=== PATIENT | female | born 1970 | race Caucasian/White ===

== ENCOUNTER 2018-05-06 17:36 | Emergency (ER) | payer BC, OTHER ==
--- NOTE | 2018-05-06 18:25 | ED ---
Chest Pain HPI - General Chief Complaint: Chest Pain Stated Complaint: Abnormal Labs Time Seen by Provider: 05/06/18 18:24 Source: patient Mode of arrival: ambulatory Limitations: no limitations - History of Present Illness Initial Comments: Diana is a 47-year-old female who presents to the emergency department after outpatient labs revealed an elevated troponin. Patient reports that on Sunday she was attending a concert at [facility]. She reports that she was walking the stairs and when she got to the top of the stairs she felt very short of breath, she began coughing and felt like she was given a pass out. She reports at that time she had some chest pressure, sharp pain and felt as though she could not catch her breath. Patient reports that she was scheduled to see her primary care physician today and discuss these symptoms with her primary care physician who ordered an emergent outpatient echo as well as labs. Labs resulted with an elevated troponin she was advised to come to the emergency department. She has no personal cardiac history though she does report that she had an aunt who had a stroke in her 40s and subsequently had a fatal AL. In addition she had 2 cousins who are twins who in their 40s from cardiac complications she is uncertain what those were. She has no personal history of PE or DVT. She has a history of a superficial venous thrombosis in the past but no deep vein thrombosis. She has no known family history of clotting disorder. She did make a trip to [place] earlier this month, however this was a 4 hour plane flight. Patient denies any swelling of one extremity or the other. She denies any immobilization or known cancers. - Related Data Home Medications Medication Instructions Recorded Confirmed Ibuprofen [Advil] 600 mg PO Q6HR PRN 05/06/18 05/06/18 Latanoprost/Pf [Latanoprost 0.005% 1 drop BOTH EYES HS 05/06/18 05/06/18 Eye Drop] Lisinopril [Zestril] 10 mg PO DAILY 05/06/18 05/06/18 Meloxicam [Mobic] 15 mg PO DAILY 05/06/18 05/06/18 Multivitamins, Thera [Multivitamin 1 tab PO DAILY 05/06/18 05/06/18 (formulary)] Allergies Allergy/AdvReac Type Severity Reaction Status Date / Time No Known Allergies Allergy Verified 05/06/18 17:45 Review of Systems ROS Statement: Those systems with pertinent positive or pertinent negative responses have been documented in the HPI. ROS Other: All systems not noted in ROS Statement are negative. EKG Findings - EKG Comments: EKG Findings:: EKG obtained at 1822, rate is 96, rhythm is sinus, there is normal axis, normal intervals, DE 142, QRS 92, QTc 472, there are no acute ST elevations or depressions noted. There is no evidence of acute ischemia or infarction. No evidence of acute right heart strain. Past Medical History Past Medical History: Hypertension Additional Past Medical History / Comment(s): glaucoma History of Any Multi-Drug Resistant Organisms: None Reported Past Surgical History: Section Additional Past Surgical History / Comment(s): gastric bypass Past Psychological History: No Psychological Hx Reported Smoking Status: Never smoker Past Alcohol Use History: None Reported Past Drug Use History: None Reported General Exam Limitations: no limitations Course Vital Signs 05/06/18 05/06/18 05/06/18 17:42 18:39 19:30 Temperature 98.7 F Pulse Rate 122 H 98 Pulse Rate [ 96 Trench Pipe Layer Helper ] Respiratory 20 20 18 Rate Blood Pressure 139/89 168/78 O2 Sat by Pulse 97 98 Oximetry 05/06/18 05/06/18 05/06/18 20:19 20:51 21:14 Temperature 98.7 F 98.6 F Pulse Rate 103 H 98 99 Pulse Rate [ Trench Pipe Layer Helper ] Respiratory 20 18 16 Rate Blood Pressure 165/97 156/90 150/80 O2 Sat by Pulse 100 98 98 Oximetry Chest Pain MDM - Differential Diagnosis PE - [facility] Patient was seen and evaluated, history is obtained from the patient. History is very concerning for possible pulmonary embolism. Labs and imaging were ordered. EKG with a rate of 96, no tachycardia noted Labs reviewed, troponin is elevated at 0.2, d-dimer is significantly elevated at this time I have a very high suspicion for possible pulmonary embolism and I ordered high-dose heparin for treatment. PE study is pending. I reviewed the computed tomography scan which is concerning for bilateral pulmonary embolism, this was discussed with the on-call radiologist Dr. Smith who agrees that there is bilateral pulmonary embolism and each lung field. No sign of right heart strain on CT. I do feel this patient is a good candidate for intervention, the patient is hemodynamically stable with a bilateral pulmonary embolism. I discussed this with the patient and she is agreeable to possible transfer to a facility that is capable of doing ECOS. Patient care was discussed with Dr. Burt at [facility] who accepts the transfer to their facility for evaluation of possible ECOS. Disposition Clinical Impression: Pulmonary embolism, Elevated troponin Disposition: OTHER INSTITUTION NOT DEFINED Condition: Serious Instructions: Chest Pain (ED) Is patient prescribed a controlled substance at d/c from ED?: No Referrals: Santy Turcios MD [Primary Care Provider] - 1-2 days Time of Disposition: 20:45 - Out of Hospital Transfer - Req. Specs Out of Hospital Transfer - Requested Specifics: Other Emergency Center ([facility])
[2018-05-06 18:47] LABS: Anisocytosis Slight; Basophils % (A) 0 %; Eosinophils # (A) 0.1 k/uL (0-0.7); Eosinophils % (A) 1 %; HCT 42.9 % (34.0-46.0); HGB 12.4 gm/dL (11.4-16.0); Hypochromasia Marked; Lymphocytes # (A) 1.8 k/uL (1.0-4.8); Lymphocytes % (A) 19 %; MCH 20.1 pg (25.0-35.0); MCHC 28.9 g/dL (31.0-37.0); MCV 69.3 fL (80.0-100.0); Mean Platelet Volume 6.6; Microcytosis Marked; Monocytes # (A) 0.6 k/uL (0-1.0); Monocytes % (A) 7 %; Neutrophils # (A) 6.9 k/uL (1.3-7.7); Neutrophils % (A) 73 %; Platelet Count 210 k/uL (150-450); RBC 6.19 m/uL (3.80-5.40); RDW 17.1 % (11.5-15.5); WBC 9.4 k/uL (3.8-10.6)
--- NOTE | 2018-05-06 18:53 | XR ---
EXAMINATION TYPE: XR chest 2V DATE OF EXAM: 05/06/2018 COMPARISON: NONE HISTORY: Chest pain TECHNIQUE: Frontal and lateral views of the chest are obtained. FINDINGS: Heart and mediastinum are normal. Lungs are clear. Diaphragm is normal. Bony thorax appear s normal. IMPRESSION: Normal chest
[2018-05-06 19:03] LABS: ALT 29 U/L (9-52); AST 29 U/L (14-36); Albumin 4.1 g/dL (3.5-5.0); Alkaline Phosphatase 87 U/L (38-126); Anion Gap 10 mmol/L; Blood Urea Nitrogen 16 mg/dL (7-17); Calcium 9.8 mg/dL (8.4-10.2); Carbon Dioxide 24 mmol/L (22-30); Chloride 107 mmol/L (98-107); Glucose 110 mg/dL (74-99); Magnesium 1.9 mg/dL (1.6-2.3); Potassium 4.2 mmol/L (3.5-5.1); Sodium 141 mmol/L (137-145); Total Bilirubin 0.4 mg/dL (0.2-1.3); Total Protein 7.5 g/dL (6.3-8.2)
[2018-05-06 19:15] LABS: Creatine Kinase MB 1.5 ng/mL (0.0-2.4)
[2018-05-06 19:19] LABS: D-Dimer 10.04 mg/L FEU (<0.60)
[2018-05-06 19:23] LABS: Troponin I 0.201 ng/mL (0.000-0.034)
[2018-05-06 19:25] LABS: Partial Thromboplastin Time 21.2 sec (22.0-30.0)
[2018-05-06] MEDS ORDERED: HEPARIN SODIUM,PORCINE 10,000 UNIT/ML 1 ML VIAL IV ONE (19:30)
[2018-05-06] MEDS ORDERED: HEPARIN SODIUM,PORCINE 5,000 UNIT/ML 1 ML VIAL IV PRN (19:30)
[2018-05-06] MEDS ORDERED: HEPARIN SOD,PORK IN 0.45% NACL 25,000 UNIT in 0.45% NACL 1 500ML.BAG IV SCH (19:30)
--- NOTE | 2018-05-06 20:27 | CT ---
EXAMINATION TYPE: CT chest angio for PE DATE OF EXAM: 05/06/2018 COMPARISON: None HISTORY: Shortness of breath, mid chest and back pain, elevated d-dimer. CT DLP: 497 mGycm Automated exposure control for dose reduction was used. CONTRAST: CT Chest for pulmonary embolism performed with with IV Contrast, patient injected with 81 mL of Isovu e 370. FINDINGS: There are 3-D post processed images. Lungs are clear of infiltrate. There is no pleural effusion. There is small hiatal hernia. There are surgical clips probably from bariatric surgery. Heart size is normal. There is no pericardial effusion. There are multiple filling defects in the pul monary arteries in both lower lobes. There is also involvement of the upper lobe pulmonary arteries. There is no mediastinal adenopathy. Thoracic aorta appears normal. There is no aneurysm or dissection . There is no mediastinal adenopathy. The bony thorax is intact. There is no reflux of contrast into the jugular veins. Interventricular septum appears normal. Right heart is not enlarged. IMPRESSION: Extensive bilateral upper and lower lobe pulmonary emboli. This exam was discussed with ER physician at 8:20 PM. No evidence of right heart strain.
[2018-05-06 21:18] VITALS: BP 150/80; PULSE 99; RESP 16; TEMP 98.6
== END 2018-05-06 21:14 | disposition short-term general hospital (02) ==
LOC: EC 17:36
DX: I26.99 Other pulmonary embolism without acute cor pulmonale (principal); R79.89 Other specified abnormal findings of blood chemistry; R79.1 Abnormal coagulation profile; H40.9 Unspecified glaucoma; I10 Essential (primary) hypertension; Z79.1 Long term (current) use of non-steroidal anti-inflammatories (NSAID); Z79.899 Other long term (current) drug therapy; Z82.49 Family history of ischemic heart disease and other diseases of the circulatory system
CPT/HCPCS: 99285; 96365; 96376; 36415; 93005; 85379; 80053; 82550; 82553; 83735; 84484; 85025; 85610; 85730; 71046; 71275; J1644 ×2; Q9967

== ENCOUNTER 2018-06-24 14:25 | Emergency (ER) | payer OTHER ==
[2018-06-24] MEDS ORDERED: SODIUM CHLORIDE 0.9% 500 ML 500 ML IV STA (15:20)
--- NOTE | 2018-06-24 15:23 | ED ---
SOB HPI - General Source: patient, RN notes reviewed Mode of arrival: ambulatory Limitations: no limitations <Marco Mata - Last Filed: 06/24/18 16:58> <Fermin Campbell - Last Filed: 06/24/18 19:06> - General Chief Complaint: Shortness of Breath Stated Complaint: Sob Time Seen by Provider: 06/24/18 15:13 - History of Present Illness Initial Comments: This is a 48-year-old female presents emergency Department chief complaint of shortness of breath. Patient states she's had increased shortness breath last 3 days. Patient states approximately 6 weeks ago she was transferred from here to [facility] [place] for saddle PE and which she states that she had a procedure to break the clot. She states that they went to her groin and gave her which she believes was TPA for 8 hours. Patient states that she was discharged on Eliquis. Patient states that she has pressure in her chest and just more short of breath than usual. Patient denies any URI symptoms. Patient denies any headache this time but she has slight dizziness. (Marco Mata) - Related Data Home Medications Medication Instructions Recorded Confirmed Lisinopril [Zestril] 10 mg PO DAILY 05/06/18 06/24/18 Acetaminophen Tab [Tylenol Tab] 1,000 mg PO Q6HR PRN 06/24/18 06/24/18 Apixaban [Eliquis] 5 mg PO BID 06/24/18 06/24/18 Ferrous Sulfate [Feosol] 325 mg PO DAILY 06/24/18 06/24/18 Multivitamins, Thera [Multivitamin 1 tab PO DAILY 06/24/18 06/24/18 (formulary)] Allergies Allergy/AdvReac Type Severity Reaction Status Date / Time No Known Allergies Allergy Verified 06/24/18 15:23 Review of Systems ROS Other: All systems not noted in ROS Statement are negative. <Marco Mata - Last Filed: 06/24/18 16:58> ROS Other: All systems not noted in ROS Statement are negative. <Fermin Campbell - Last Filed: 06/24/18 19:06> ROS Statement: Those systems with pertinent positive or pertinent negative responses have been documented in the HPI. Past Medical History Past Medical History: Deep Vein Thrombosis (DVT), Hypertension, Pulmonary Embolus (PE) Additional Past Medical History / Comment(s): glaucoma History of Any Multi-Drug Resistant Organisms: None Reported Past Surgical History: Section Additional Past Surgical History / Comment(s): gastric bypass Past Psychological History: No Psychological Hx Reported Smoking Status: Never smoker Past Alcohol Use History: None Reported Past Drug Use History: None Reported <Marco Mata - Last Filed: 06/24/18 16:58> General Exam Limitations: no limitations General appearance: alert, in no apparent distress Head exam: Present: atraumatic, normocephalic, normal inspection Eye exam: Present: normal appearance, PERRL, EOMI. Absent: scleral icterus, conjunctival injection, periorbital swelling ENT exam: Present: normal exam, normal oropharynx, mucous membranes moist, TM's normal bilaterally, normal external ear exam Neck exam: Present: normal inspection, full ROM. Absent: tenderness, meningismus, lymphadenopathy Respiratory exam: Present: normal lung sounds bilaterally. Absent: respiratory distress, wheezes, rales, rhonchi, stridor Cardiovascular Exam: Present: normal rhythm, tachycardia, normal heart sounds. Absent: systolic murmur, diastolic murmur, rubs, gallop, clicks Neurological exam: Present: alert, oriented X3, CN II-XII intact Skin exam: Present: warm, dry, intact, normal color. Absent: rash <Marco Mata - Last Filed: 06/24/18 16:58> Vital Signs 06/24/18 06/24/18 14:56 16:23 Temperature 98.2 F Pulse Rate 106 H Respiratory 20 18 Rate Blood Pressure 122/81 O2 Sat by Pulse 100 Oximetry Medical Decision Making - Lab Data Result diagrams: 06/24/18 16:15 06/24/18 16:15 <Marco Mata - Last Filed: 06/24/18 16:58> - Lab Data Result diagrams: 06/24/18 16:15 06/24/18 16:15 <Fermin Campbell - Last Filed: 06/24/18 19:06> - Medical Decision Making Patient reexamined at this time shows no signs of distress. Patient was advised coming here to the emergency room to rule out a PE. Patient states that she was diagnosed with a pulmonary embolism 6 weeks ago. She states she is currently on a blood thinner of Eliquis. Patient's labs were reviewed. Her CT of the chest CT shows 1. No acute process. 2. Interval resolution of pulmonary emboli seen on prior CT on 05/06/2018. New 3 cm with soft tissue density posterior within the left lower lobe noted. Advised a [address] follow -up as read by radiologist Dr. Smith. Results discussed with the patient. Case discussed with attending physician Dr. Johnson. At this time patient is resting comfortably. She will be discharged to follow-up with her family physician. (Fermin Campbell) - Lab Data Lab Results 06/24/18 06/24/18 06/24/18 Range/Units 16:15 16:15 16:15 WBC 7.1 (3.8-10.6) k/uL RBC 6.06 H (3.80-5.40) m/uL Hgb 12.9 (11.4-16.0) gm/dL Hct 42.0 (34.0-46.0) % MCV 69.3 L (80.0-100.0) fL MCH 21.3 L (25.0-35.0) pg MCHC 30.7 L (31.0-37.0) g/dL RDW 17.0 H (11.5-15.5) % Plt Count 224 (150-450) k/uL Neutrophils % 68 % Lymphocytes % 22 % Monocytes % 7 % Eosinophils % 1 % Basophils % 0 % Neutrophils # 4.9 (1.3-7.7) k/uL Lymphocytes # 1.6 (1.0-4.8) k/uL Monocytes # 0.5 (0-1.0) k/uL Eosinophils # 0.1 (0-0.7) k/uL Basophils # 0.0 (0-0.2) k/uL Hypochromasia Moderate Anisocytosis Slight Microcytosis Marked PT (9.0-12.0) sec INR (<1.2) APTT (22.0-30.0) sec Sodium 139 (137-145) mmol/L Potassium 4.6 (3.5-5.1) mmol/L Chloride 105 (98-107) mmol/L Carbon Dioxide 27 (22-30) mmol/L Anion Gap 7 mmol/L BUN 16 (7-17) mg/dL Creatinine 0.79 (0.52-1.04) mg/dL Est GFR (CKD-EPI)AfAm >90 (>60 ml/min/1.73 sqM) Est GFR (CKD-EPI)NonAf >90 (>60 ml/min/1.73 sqM) Glucose 100 H (74-99) mg/dL Calcium 9.7 (8.4-10.2) mg/dL Magnesium 1.9 (1.6-2.3) mg/dL Total Bilirubin 0.5 (0.2-1.3) mg/dL AST 32 (14-36) U/L ALT 33 (9-52) U/L Alkaline Phosphatase 76 (38-126) U/L Total Creatine Kinase 73 (30-135) U/L CK-MB (CK-2) 1.0 (0.0-2.4) ng/mL CK-MB (CK-2) Rel Index 1.4 Troponin I <0.012 (0.000-0.034) ng/mL NT-Pro-B Natriuret Pep pg/mL Total Protein 7.6 (6.3-8.2) g/dL Albumin 4.0 (3.5-5.0) g/dL 06/24/18 06/24/18 Range/Units 16:15 16:15 WBC (3.8-10.6) k/uL RBC (3.80-5.40) m/uL Hgb (11.4-16.0) gm/dL Hct (34.0-46.0) % MCV (80.0-100.0) fL MCH (25.0-35.0) pg MCHC (31.0-37.0) g/dL RDW (11.5-15.5) % Plt Count (150-450) k/uL Neutrophils % % Lymphocytes % % Monocytes % % Eosinophils % % Basophils % % Neutrophils # (1.3-7.7) k/uL Lymphocytes # (1.0-4.8) k/uL Monocytes # (0-1.0) k/uL Eosinophils # (0-0.7) k/uL Basophils # (0-0.2) k/uL Hypochromasia Anisocytosis Microcytosis PT 10.1 (9.0-12.0) sec INR 1.0 (<1.2) APTT 22.0 (22.0-30.0) sec Sodium (137-145) mmol/L Potassium (3.5-5.1) mmol/L Chloride (98-107) mmol/L Carbon Dioxide (22-30) mmol/L Anion Gap mmol/L BUN (7-17) mg/dL Creatinine (0.52-1.04) mg/dL Est GFR (CKD-EPI)AfAm (>60 ml/min/1.73 sqM) Est GFR (CKD-EPI)NonAf (>60 ml/min/1.73 sqM) Glucose (74-99) mg/dL Calcium (8.4-10.2) mg/dL Magnesium (1.6-2.3) mg/dL Total Bilirubin (0.2-1.3) mg/dL AST (14-36) U/L ALT (9-52) U/L Alkaline Phosphatase (38-126) U/L Total Creatine Kinase (30-135) U/L CK-MB (CK-2) (0.0-2.4) ng/mL CK-MB (CK-2) Rel Index Troponin I (0.000-0.034) ng/mL NT-Pro-B Natriuret Pep 94 pg/mL Total Protein (6.3-8.2) g/dL Albumin (3.5-5.0) g/dL - EKG Data EKG Comments: EKG performed at 15:40 normal sinus rhythm with a rate of 93 GA 162 QRS 78 QT/ QTC 350/435 (Marco Mata) Disposition <Marco Mata - Last Filed: 06/24/18 16:58> Is patient prescribed a controlled substance at d/c from ED?: No Time of Disposition: 19:06 <Fermin Campbell - Last Filed: 06/24/18 19:06> Clinical Impression: Mass of left lung Disposition: HOME SELF-CARE Condition: Good Additional Instructions: Please follow-up the family doctor over the next 2 days. Please return here to the emergency room for any symptoms increase worsen or for any other concerns. Referrals: Santy Turcios MD [Primary Care Provider] - 1-2 days
[2018-06-24 16:26] VITALS: RESP 18
[2018-06-24 16:27] LABS: Anisocytosis Slight; Basophils % (A) 0 %; Eosinophils # (A) 0.1 k/uL (0-0.7); Eosinophils % (A) 1 %; HGB 12.9 gm/dL (11.4-16.0); Hypochromasia Moderate; Lymphocytes # (A) 1.6 k/uL (1.0-4.8); Lymphocytes % (A) 22 %; MCH 21.3 pg (25.0-35.0); MCHC 30.7 g/dL (31.0-37.0); MCV 69.3 fL (80.0-100.0); Mean Platelet Volume 6.7; Microcytosis Marked; Monocytes # (A) 0.5 k/uL (0-1.0); Monocytes % (A) 7 %; Neutrophils # (A) 4.9 k/uL (1.3-7.7); Neutrophils % (A) 68 %; Platelet Count 224 k/uL (150-450); RBC 6.06 m/uL (3.80-5.40); WBC 7.1 k/uL (3.8-10.6)
[2018-06-24 16:35] LABS: ALT 33 U/L (9-52); AST 32 U/L (14-36); Alkaline Phosphatase 76 U/L (38-126); Anion Gap 7 mmol/L; Blood Urea Nitrogen 16 mg/dL (7-17); Calcium 9.7 mg/dL (8.4-10.2); Carbon Dioxide 27 mmol/L (22-30); Chloride 105 mmol/L (98-107); Glucose 100 mg/dL (74-99); Magnesium 1.9 mg/dL (1.6-2.3); Potassium 4.6 mmol/L (3.5-5.1); Sodium 139 mmol/L (137-145); Total Bilirubin 0.5 mg/dL (0.2-1.3); Total Protein 7.6 g/dL (6.3-8.2)
[2018-06-24 16:38] LABS: Creatine Kinase 73 U/L (30-135)
[2018-06-24 16:42] LABS: Prothrombin Time 10.1 sec (9.0-12.0)
[2018-06-24 16:53] LABS: Troponin I <0.012 ng/mL (0.000-0.034)
--- NOTE | 2018-06-24 18:01 | CT ---
EXAMINATION TYPE: CT chest angio for PE with contrast and with 3-D reconstruction renderings DATE OF EXAM: 06/24/2018 COMPARISON: 05/06/2018 CTA - which showed extensive pulmonary emboli wo right heart strain evidence. HISTORY: SOB for 5 days with history of PE CT DLP: 571.2 mGycm Automated exposure control for dose reduction was used. CONTRAST: CT Chest for pulmonary embolism performed with with IV Contrast, patient injected with 100 mL of Isovue 370. FINDINGS: LUNGS: The lungs are grossly clear, there is no acute process. The left lower lobe posteriorly is a 3 x 2 x 1.5 cm soft tissue density not seen on the prior CTA of 05/06/2018, likely rounded atelectasis versus infarct. There is no pleural effusion or pneumothorax seen. The tracheobronchial tree is pat ent. MEDIASTINUM: There is satisfactory enhancement of the pulmonary artery and its branches, there is no CT evidence for pulmonary embolism. Aorta is unremarkable. There are no greater than 1 cm hilar or m ediastinal lymph nodes. No cardiomegaly. No pericardial effusion is seen. OTHER: No additional significant abnormality is seen. IMPRESSION: 1. NO ACUTE PROCESS. 2. Interval resolution of the pulmonary emboli seen on the prior CTA of 05/06/2018. New 3 cm ovoid so ft tissue density posteriorly within the left lower lobe noted; would advise 3 month follow-up CT to prove resolution.
[2018-06-24 19:23] VITALS: BP 114/76; PULSE 82; TEMP 97.5
== END 2018-06-24 19:21 | disposition home or self-care (01) ==
LOC: EC 14:25
DX: R91.8 Other nonspecific abnormal finding of lung field (principal); I26.99 Other pulmonary embolism without acute cor pulmonale; R00.0 Tachycardia, unspecified; R06.02 Shortness of breath; R07.89 Other chest pain; R42 Dizziness and giddiness; I10 Essential (primary) hypertension; Z79.01 Long term (current) use of anticoagulants; Z79.899 Other long term (current) drug therapy; Z86.718 Personal history of other venous thrombosis and embolism
CPT/HCPCS: 36415; 93005; 83880; 80053; 82550; 82553; 83735; 84484; 85025; 85610; 85730; 71275; 99285; 96360; Q9967

== ENCOUNTER → 2018-12-03 | Outpatient (CLI) | payer OTHER ==
--- NOTE | 2018-12-05 09:59 | MM ---
Reason for exam: screening (asymptomatic). Last mammogram was performed 2 years and 4 months ago. History: Patient had first child at age 34. Family history of breast cancer in maternal grandmother at age 70. Physical Findings: A clinical breast exam by your physician is recommended on an annual basis and results should be correlated with mammographic findings. MG Screening Mammo w CAD Bilateral CC and MLO view(s) were taken. Prior study comparison: August 02, 2016, bilateral MG 3d screening mammo w/cad. August 13, 2012, CAD bilateral diagnostic mammogram. There are scattered fibroglandular densities. There is chronic nodularity bilaterally. No significant changes when compared with prior studies. ASSESSMENT: Negative, BI-RAD 1 RECOMMENDATION: Routine screening mammogram of both breasts in 1 year.
== END | disposition home or self-care (01) ==
LOC: RADMAMWWP 16:42
PROVIDERS: ATTEND Obstetrics & Gynecology
DX: Z12.31 Encounter for screening mammogram for malignant neoplasm of breast (principal)
CPT/HCPCS: 77067

== ENCOUNTER → 2019-01-07 | Outpatient (CLI) | payer OTHER ==
[2019-01-08 11:15] LABS: APTT 34 Sec(s) (<43); DRVVT 1:1 Mix 46 Sec(s) (<44); DRVVT Confirmation Negative (Negative); Dilute Russell Viper Venom 57 Sec(s) (<44)
[2019-01-10 11:35] LABS: Anti-Thrombin III Activity 69 % (79-109)
[2019-01-10 12:19] LABS: Protein C (Activity) 89 % (71-138)
== END | disposition home or self-care (01) ==
LOC: LABWHC1 11:34
PROVIDERS: ATTEND Family Medicine
DX: I26.09 Other pulmonary embolism with acute cor pulmonale (principal); D50.8 Other iron deficiency anemias
CPT/HCPCS: 36415; 85300; 85303; 85306; 85613; 85730

== ENCOUNTER → 2019-02-14 | Outpatient (CLI) | payer OTHER ==
--- NOTE | 2019-02-17 19:41 | ECHOF ---
Referral Reason:I50.9 Heart Failure MEASUREMENTS -------- HEIGHT: 174.0 cm WEIGHT: 131.5 kg BP: 143/73 IVSd: 1.0 cm (0.6 - 1.1) LVIDd: 4.1 cm (3.9 - 5.3) LVPWd: 1.1 cm (0.6 - 1.1) IVSs: 1.5 cm LVIDs: 2.7 cm LVPWs: 1.6 cm LA Diam: 3.3 cm (2.7 - 3.8) RVIDd: 3.1 cm (< 3.3) LAESV Index (A-L): 23.85 ml/m Ao Diam: 3.4 cm (2.0 - 3.7) AV Cusp: 2.1 cm (1.5 - 2.6) EPSS: 0.5 cm MV E Mick: 1.35 m/s MV DecT: 212 ms MV A Mick: 1.07 m/s MV E/A Ratio: 1.26 AV maxP.01 mmHg AV meanP.18 mmHg RAP: 5.00 mmHg RVSP: 26.04 mmHg MV EF SLOPE: 98.74 mm/s (70 - 150) MV EXCURSION: 17.31 mm (> 18.000) FINDINGS -------- Sinus rhythm. This was a technically adequate study. The left ventricular size is normal. There is borderline concentric left ventricular hypertrophy. Overall left ventricular systolic function is normal with, an EF between 60 - 65 %. The right ventricle is normal in size. Normal LA size by volume 22+/-6 ml/m2. The right atrium is normal in size. Interatrial and interventricular septum intact. The aortic valve is trileaflet and appears structurally normal. The mitral valve leaflets are mildly thickened. Mild tricuspid regurgitation present. Right ventricular systolic pressure is normal at < 35 mmHg. Trace/mild (physiologic) pulmonic regurgitation. Area of interests in LV The aortic root size is normal. Normal inferior vena cava with normal inspiratory collapse consistent with estimated right atrial pre ssure of 5 mmHg. IVC Not well visulized. There is no pericardial effusion. CONCLUSIONS -------- 1. Sinus rhythm. 2. This was a technically adequate study. 3. The left ventricular size is normal. 4. There is borderline concentric left ventricular hypertrophy. 5. Overall left ventricular systolic function is normal with, an EF between 60 - 65 %. 6. The right ventricle is normal in size. 7. Normal LA size by volume 22+/-6 ml/m2. 8. The right atrium is normal in size. 9. Interatrial and interventricular septum intact. 10. The aortic valve is trileaflet and appears structurally normal. 11. The mitral valve leaflets are mildly thickened. 12. Mild tricuspid regurgitation present. 13. Right ventricular systolic pressure is normal at < 35 mmHg. 14. Trace/mild (physiologic) pulmonic regurgitation. 15. Area of interests in LV 16. The aortic root size is normal. 17. Normal inferior vena cava with normal inspiratory collapse consistent with estimated right atrial pressure of 5 mmHg. 18. IVC Not well visulized. 19. There is no pericardial effusion. [employer] WORKER: Estrella Jin RDCS
== END | disposition home or self-care (01) ==
LOC: RADECHMAIN 15:31
PROVIDERS: ATTEND Family Medicine
DX: I07.1 Rheumatic tricuspid insufficiency (principal); I37.1 Nonrheumatic pulmonary valve insufficiency
CPT/HCPCS: 93306

== ENCOUNTER → 2019-05-13 | Outpatient (CLI) | payer OTHER ==
[2019-05-13 13:39] LABS: Anisocytosis Slight; Basophils % (A) 1 %; Eosinophils # (A) 0.1 k/uL (0-0.7); Eosinophils % (A) 2 %; HCT 40.8 % (34.0-46.0); HGB 12.1 gm/dL (11.4-16.0); Hypochromasia Marked; Lymphocytes # (A) 1.7 k/uL (1.0-4.8); Lymphocytes % (A) 27 %; MCH 21.3 pg (25.0-35.0); MCHC 29.6 g/dL (31.0-37.0); MCV 71.8 fL (80.0-100.0); Mean Platelet Volume 7.1; Microcytosis Moderate; Monocytes # (A) 0.4 k/uL (0-1.0); Monocytes % (A) 6 %; Neutrophils # (A) 3.8 k/uL (1.3-7.7); Neutrophils % (A) 62 %; Platelet Count 218 k/uL (150-450); RBC 5.68 m/uL (3.80-5.40); RDW 17.1 % (11.5-15.5); WBC 6.1 k/uL (3.8-10.6)
== END | disposition home or self-care (01) ==
LOC: LABWHC1 12:25
PROVIDERS: ATTEND Internal Medicine
DX: I26.09 Other pulmonary embolism with acute cor pulmonale (principal); D50.8 Other iron deficiency anemias
CPT/HCPCS: 36415; 82728; 85025; 85300

== ENCOUNTER → 2019-05-30 | Outpatient (CLI) | payer OTHER ==
--- NOTE | 2019-05-31 10:08 | US ---
EXAMINATION TYPE: US kidneys/renal and bladder DATE OF EXAM: 05/30/2019 COMPARISON: NONE CLINICAL HISTORY: N23 RENAL COLIC. bilateral flank pain EXAM MEASUREMENTS: Right Kidney: 11.8 x 5.1 x 5.5 cm Left Kidney: 12.5 x 4.8 x 5.5 cm Right Kidney: No hydronephrosis or masses seen Left Kidney: No hydronephrosis or masses seen Bladder: wnl Bilateral Jets seen: yes There is no evidence for hydronephrosis at this point in time. No nephrolithiasis is seen. No ahsan s are identified. The urinary bladder is anechoic. Bilateral ureteral jets are seen. IMPRESSION: No significant abnormality seen.
== END | disposition home or self-care (01) ==
LOC: RADUSWWP 16:08
PROVIDERS: ATTEND Family Medicine
DX: N23 Unspecified renal colic (principal)
CPT/HCPCS: 76770

== ENCOUNTER 2019-07-04 11:44 | Day surgery (SDC) | payer OTHER ==
[2019-07-02 15:44] VITALS: BMI 44.3
[~2019-07-04 11:44] MED LIST: LACTATED RINGERS 1,000 ML IV SCH; LIDOCAINE 1% 20 ML VIAL (10MG/ML) FOR IV START INTRADERMA PRN
[2019-07-04 12:27] VITALS: RESP 16; TEMP 97.8
[2019-07-04] MEDS ORDERED: PROPOFOL 10 MG/ML 20 ML VIAL IV ONE (12:32)
--- NOTE | 2019-07-04 12:54 | P.PCN ---
Date of Procedure: 07/04/19 Procedure(s) Performed: BRIEF HISTORY: Patient is a 49-year-old pleasant female scheduled for an elective colonoscopy as a part of evaluation of iron deficiency anemia. Recently diagnosed with pulmonary embolism and has been on a liquid which she stopped 2 days ago. Also has had prior history of gastric bypass surgery. PROCEDURE PERFORMED: Colonoscopy with biopsy. PREOPERATIVE DIAGNOSIS: Iron deficiency anemia. IV sedation per Anesthesia. PROCEDURE: After informed consent was obtained, the patient, was brought into the endoscopy unit. IV sedation was administered by Anesthesia under continuous monitoring. Digital rectal examination was normal. Initially the Olympus CF-160 flexible video colonoscope was then inserted in the rectum, gradually advanced into the cecum without any difficulty. Careful examination was performed as the scope was gradually being withdrawn. Ileocecal valve and the appendiceal orifice were visualized and appeared normal. Prep was excellent. Mucosa of the cecum, ascending colon appeared normal. In the hepatic flexure there was a 2-3 mm polyp that was removed by cold biopsy. The proximal transverse colon there was a 5 mm sessile polyp removed by cold biopsy. Rest of the, transverse colon, descending colon, sigmoid colon, and rectum appeared normal. Retroflexion was performed in the rectum and no lesions were seen. Scattered sigmoid diverticulosis seen. The patient tolerated the procedure well. IMPRESSION: 2-3 mm sessile hepatic flexure polyp status post removal by cold biopsy 5 mm sessile transverse colon polyp status post removal by cold biopsy Scattered sigmoidal diverticulosis RECOMMENDATIONS: Findings of this examination were discussed with the patient as well as a family. She was advised to follow with the biopsy results. If the biopsy shows an adenoma she can have a repeat coloscopy in 5 years.
[2019-07-04 13:09] VITALS: BP 147/79; PULSE 75
== END 2019-07-04 13:31 | disposition home or self-care (01) ==
LOC: ORWHC2ENDO 11:44
PROVIDERS: ATTEND Internal Medicine Gastroenterology
DX: D50.9 Iron deficiency anemia, unspecified (principal); D12.3 Benign neoplasm of transverse colon; K63.5 Polyp of colon; K57.30 Diverticulosis of large intestine without perforation or abscess without bleeding; I10 Essential (primary) hypertension; Z79.01 Long term (current) use of anticoagulants; Z79.899 Other long term (current) drug therapy; Z98.84 Bariatric surgery status; Z86.711 Personal history of pulmonary embolism; Z86.718 Personal history of other venous thrombosis and embolism
CPT/HCPCS: 88305; 45380; J2704

== ENCOUNTER → 2019-09-17 | Outpatient (CLI) | payer OTHER ==
[2019-09-17 17:22] LABS: Anisocytosis Slight; Basophils % (A) 0 %; Eosinophils # (A) 0.1 k/uL (0-0.7); Eosinophils % (A) 1 %; HCT 43.2 % (34.0-46.0); HGB 12.9 gm/dL (11.4-16.0); Hypochromasia Marked; Lymphocytes # (A) 2.1 k/uL (1.0-4.8); Lymphocytes % (A) 27 %; MCH 22.5 pg (25.0-35.0); MCHC 29.9 g/dL (31.0-37.0); MCV 75.2 fL (80.0-100.0); Mean Platelet Volume 8.3; Microcytosis Slight; Monocytes # (A) 0.4 k/uL (0-1.0); Monocytes % (A) 6 %; Neutrophils % (A) 64 %; Platelet Count 269 k/uL (150-450); RBC 5.75 m/uL (3.80-5.40); RDW 16.2 % (11.5-15.5); WBC 7.8 k/uL (3.8-10.6)
[2019-09-18 01:02] LABS: % Iron Saturation 6.1 (12.00-45.00); Ferritin 7.4 ng/mL (10.0-291.0)
== END | disposition home or self-care (01) ==
LOC: LABWHC1 16:45
PROVIDERS: ATTEND Internal Medicine
DX: D50.8 Other iron deficiency anemias (principal); I26.09 Other pulmonary embolism with acute cor pulmonale
CPT/HCPCS: 36415; 82607; 82728; 83540; 83550; 85025

== ENCOUNTER → 2019-09-17 | Outpatient (CLI) | payer OTHER ==
--- NOTE | 2019-09-18 07:14 | XR ---
EXAMINATION TYPE: XR chest 2V DATE OF EXAM: 09/17/2019 COMPARISON: 05/06/2018 HISTORY: Shortness of breath. TECHNIQUE: Frontal and lateral views of the chest are obtained. FINDINGS: There is no focal air space opacity, pleural effusion, or pneumothorax seen. Redemonstrat ion of eventration of the right hemidiaphragm. The cardiac silhouette size is within normal limits. The osseous structures are intact. Small hiatal hernia suspected. IMPRESSION: No acute cardiopulmonary process.
--- NOTE | 2019-09-18 08:21 | XR ---
EXAMINATION TYPE: XR thoracic spine complete DATE OF EXAM: 09/17/2019 CLINICAL HISTORY: Central back pain between the scapulas without known injury. TECHNIQUE: Frontal, lateral, and swimmer's view of thoracic spine are obtained. COMPARISON: None. FINDINGS: Thoracic spine show satisfactory alignment without evidence of acute fracture or dislocatio n. Vertebral body heights and disc space heights are preserved. Minimal degenerative change with sma ll anterior osteophytes at multiple levels. There are low lung volumes. IMPRESSION: No acute fracture or malalignment is seen in the thoracic spine. Minimal degenerative di sc disease of the thoracic spine.
--- NOTE | 2019-09-18 08:22 | XR ---
EXAMINATION TYPE: XR scapula bilateral DATE OF EXAM: 09/17/2019 COMPARISON: NONE HISTORY: Bilateral scapular pain with no known injury TECHNIQUE: 2 views of the bilateral scapula were obtained FINDINGS: The bilateral glenohumeral joints maintain alignment. Mild bilateral acromioclavicular arth ropathy is seen with small marginal osteophytes. There is no fracture of either scapula. The visualiz ed ribs appear intact. IMPRESSION: No fracture or malalignment of either scapula. Mild acromioclavicular arthropathy bilater ally.
== END | disposition home or self-care (01) ==
LOC: RADXRMAIN 16:55
PROVIDERS: ATTEND Internal Medicine
DX: I26.09 Other pulmonary embolism with acute cor pulmonale (principal); M51.34 Other intervertebral disc degeneration, thoracic region; M19.012 Primary osteoarthritis, left shoulder; M19.011 Primary osteoarthritis, right shoulder; D50.8 Other iron deficiency anemias
CPT/HCPCS: 71046; 72072

== ENCOUNTER → 2019-10-17 | Outpatient (CLI) | payer OTHER ==
--- NOTE | 2019-10-17 12:10 | CT ---
EXAMINATION TYPE: CT chest wo con DATE OF EXAM: 10/17/2019 COMPARISON: 06/24/2018 HISTORY: Solitary pulmonary nodule CT DLP: 527.90 mGycm. Automated Exposure Control for Dose Reduction was Utilized. TECHNIQUE: CT scan of the thorax is performed without IV contrast. FINDINGS: LUNGS: 5 mm pleural nodule right upper lobe posteriorly could be inflammatory. No consolidative pneum onia. No pleural effusion. Pleural-based density and axial image 23 also incidentally noted measuring and appears to represent pleural-based thickening extending into the fissure. Left lower lobe pulmon vito nodule previously discussed now appears linear in configuration and markedly reduced in size like ly inflammatory.. MEDIASTINUM: Lack of IV contrast is noted to limit evaluation for mediastinal and especially hilar ad enopathy. There are no definitive greater than 1 cm hilar or mediastinal lymph nodes. No cardiomega ly or pericardial effusion is seen. OTHER: Postsurgical change of the stomach. Small hiatal hernia. Hypertrophic change of the vertebral column. IMPRESSION: 1. There is near complete resolution of the left lower lobe posterior pulmonary nodule. No suspicious nodules identified. 2. There are 2 additional subpleural areas of thickening in the right upper lobe are likely inflammat ory.
== END | disposition home or self-care (01) ==
LOC: RADCTMAIN 11:43
PROVIDERS: ATTEND Family Medicine
DX: R91.1 Solitary pulmonary nodule (principal)
CPT/HCPCS: 71250

== ENCOUNTER → 2020-03-12 | Outpatient (CLI) | payer OTHER ==
[2020-03-12 07:57] LABS: Anisocytosis Slight; Basophils % (A) 1 %; Eosinophils # (A) 0.1 k/uL (0-0.7); Eosinophils % (A) 2 %; HCT 41.1 % (34.0-46.0); HGB 12.2 gm/dL (11.4-16.0); Hypochromasia Marked; Lymphocytes # (A) 1.8 k/uL (1.0-4.8); Lymphocytes % (A) 30 %; MCH 22.8 pg (25.0-35.0); MCHC 29.6 g/dL (31.0-37.0); MCV 76.9 fL (80.0-100.0); Mean Platelet Volume 7.2; Microcytosis Slight; Monocytes # (A) 0.5 k/uL (0-1.0); Monocytes % (A) 8 %; Neutrophils # (A) 3.6 k/uL (1.3-7.7); Neutrophils % (A) 58 %; Platelet Count 173 k/uL (150-450); RBC 5.34 m/uL (3.80-5.40); RDW 16.8 % (11.5-15.5); WBC 6.2 k/uL (3.8-10.6)
[2020-03-12 12:12] LABS: % Iron Saturation 11.6 (12.00-45.00)
[2020-03-12 12:33] LABS: Ferritin 9.7 ng/mL (10.0-291.0)
== END | disposition home or self-care (01) ==
LOC: LABWHC1 07:17
PROVIDERS: ATTEND Internal Medicine
DX: D50.8 Other iron deficiency anemias (principal); I26.09 Other pulmonary embolism with acute cor pulmonale
CPT/HCPCS: 36415; 82607; 82728; 83540; 83550; 85025

== ENCOUNTER → 2020-08-17 | Outpatient (CLI) | payer OTHER ==
--- NOTE | 2020-08-18 13:53 | MM ---
Reason for exam: screening (asymptomatic). Last mammogram was performed 1 year and 8 months ago. History: Patient is postmenopausal and had first child at age 34. Family history of breast cancer in maternal grandmother at age 70. Physical Findings: A clinical breast exam by your physician is recommended on an annual basis and results should be correlated with mammographic findings. MG 3D Screening Mammo W/Cad Bilateral CC and MLO view(s) were taken. Prior study comparison: December 03, 2018, bilateral MG screening mammo w CAD. August 02, 2016, bilateral MG 3d screening mammo w/cad. There are scattered fibroglandular densities. There is chronic nodularity bilaterally. No significant changes when compared with prior studies. ASSESSMENT: Benign, BI-RAD 2 RECOMMENDATION: Routine screening mammogram of both breasts in 1 year.
== END | disposition home or self-care (01) ==
LOC: RADMAMWWP 16:30
PROVIDERS: ATTEND Family Medicine
DX: Z12.31 Encounter for screening mammogram for malignant neoplasm of breast (principal)
CPT/HCPCS: 77063; 77067

== ENCOUNTER → 2020-10-11 | Outpatient (CLI) | payer OTHER ==
[2020-10-11 20:26] LABS: % Iron Saturation 8.33 (12.00-45.00)
[2020-10-11 20:41] LABS: Basophils # (A) 0.03 X 10*3/uL (0.00-0.10); Basophils % (A) 0.5 %; Eosinophils # (A) 0.06 X 10*3/uL (0.04-0.35); HCT 42.7 % (37.2-46.3); HGB 12.6 g/dL (12.0-15.0); Lymphocytes # (A) 1.74 X 10*3/uL (0.90-5.00); Lymphocytes % (A) 27.9 %; MCH 23.6 pg (27.0-32.0); MCHC 29.5 g/dL (32.0-37.0); MCV 80.1 fL (80.0-97.0); Mean Platelet Volume 10.9 fL (9.5-12.2); Monocytes # (A) 0.66 X 10*3/uL (0.20-1.00); Monocytes % (A) 10.6 %; Neutrophils # (A) 3.73 X 10*3/uL (1.80-7.70); Neutrophils % (A) 59.7 %; Platelet Count 239 X 10*3/uL (140-440); RBC 5.33 X 10*6/uL (4.10-5.20); WBC 6.24 X 10*3/uL (4.50-10.00)
[2020-10-11 21:09] LABS: Ferritin 6.6 ng/mL (10.0-291.0); Folate, Serum 14.4 ng/mL
== END | disposition home or self-care (01) ==
LOC: LABWHC1 11:18
PROVIDERS: ATTEND Internal Medicine
DX: I26.09 Other pulmonary embolism with acute cor pulmonale (principal); D50.8 Other iron deficiency anemias
CPT/HCPCS: 36415; 82607; 82728; 82746; 83540; 83550; 85025

== ENCOUNTER → 2020-11-25 | Outpatient (CLI) | payer OTHER ==
[2020-11-25 18:08] LABS: Basophils # (A) 0.03 X 10*3/uL (0.00-0.10); Basophils % (A) 0.6 %; Eosinophils # (A) 0.08 X 10*3/uL (0.04-0.35); Eosinophils % (A) 1.7 %; HGB 13.8 g/dL (12.0-15.0); Lymphocytes # (A) 1.14 X 10*3/uL (0.90-5.00); Lymphocytes % (A) 23.8 %; MCH 24.6 pg (27.0-32.0); MCHC 30.7 g/dL (32.0-37.0); MCV 80.4 fL (80.0-97.0); Mean Platelet Volume 10.7 fL (9.5-12.2); Monocytes % (A) 12.5 %; Neutrophils # (A) 2.94 X 10*3/uL (1.80-7.70); Neutrophils % (A) 61.2 %; Platelet Count 202 X 10*3/uL (140-440); RDW 18.1 % (11.5-14.5)
[2020-11-25 20:57] LABS: Hemoglobin A1C 5.1 % (4.0-6.0)
[2020-11-25 21:59] LABS: % Iron Saturation 35.64 (12.00-45.00); African American GFR (CKD) 117.9 (60.0-200.0); Albumin 4.2 g/dL (3.80-4.90); Anion Gap 7.2 mmol/L (4.00-12.00); BUN/Creat Ratio 24.29 Ratio (12.00-20.00); Calcium 9.4 mg/dL (8.7-10.3); Carbon Dioxide 25.8 mmol/L (21.6-31.8); Chol/HDL Ratio 4.45; Ferritin 320.2 ng/mL (10.0-291.0); Globulin 2.1 g/dL (1.6-3.3); Non-African American GFR(CKD) 101.7 (60.0-200.0); Potassium 4.6 mmol/L (3.5-5.5); Total Bilirubin 0.5 mg/dL (0.2-1.2); Total Protein 6.3 g/dL (6.2-8.2)
== END | disposition home or self-care (01) ==
LOC: LABWHC1 07:52
PROVIDERS: ATTEND Family Medicine
DX: Z00.00 Encounter for general adult medical examination without abnormal findings (principal); I26.09 Other pulmonary embolism with acute cor pulmonale; D50.8 Other iron deficiency anemias
CPT/HCPCS: 36415; 80053; 80061; 82728; 83036; 83540; 83550; 84443; 85025

== ENCOUNTER → 2021-05-13 | Outpatient (CLI) | payer OTHER ==
--- NOTE | 2021-05-13 09:20 | US ---
EXAMINATION TYPE: US abdomen complete DATE OF EXAM: 05/13/2021 COMPARISON: NONE CLINICAL HISTORY: R10.9 abdominal pain. morbidly obese patient who has history of gastric surgery has abd pain, and bloating EXAM MEASUREMENTS: Liver Length: 16.9 cm Gallbladder Wall: 0.2 cm CBD: 0.5 cm Spleen: 14.3 cm Right Kidney: 9.4 x 5.0 x 5.7 cm Left Kidney: 10.5 x 4.0 x 6.2 cm Pancreas: not seen Liver: limited views of left lobe, intercostal imaging of right due to habitus and gas, difficult to penetrate Gallbladder: mobile debris Evidence for sonographic Maurer's sign: no CBD: wnl Spleen: enlarged Right Kidney: wnl Left Kidney: wnl Upper IVC: wnl Abd Aorta: distal views only, limited aorta exam IMPRESSION: 1. Debris within the gallbladder. 2. Splenomegaly 3. Limitation of the examination due to bowel gas.
== END | disposition home or self-care (01) ==
LOC: RADUSWWP 07:35
PROVIDERS: ATTEND Family Medicine
DX: R16.1 Splenomegaly, not elsewhere classified (principal); Z98.84 Bariatric surgery status
CPT/HCPCS: 76700

== ENCOUNTER → 2021-07-27 | Outpatient (CLI) | payer OTHER ==
[~2021-07-27] MED LIST changes: +BAMLANIVIMAB (EUA) 700 MG, ETESEVIMAB (EUA) 1,400 MG in SODIUM CHLORIDE 0.9% 50 ML IVPB NR; -LACTATED RINGERS 1,000 ML IV SCH; -LIDOCAINE 1% 20 ML VIAL (10MG/ML) FOR IV START INTRADERMA PRN; +SODIUM CHLORIDE 0.9% 50 ML IVPB ONE; +SODIUM CHLORIDE 0.9% 500 ML 500 ML in EMPTY BAG 1 BAG IV PRN
[2021-07-27 14:01] VITALS: RESP 16
[2021-07-27 14:46] VITALS: TEMP 98.2
[2021-07-27 15:05] VITALS: BP 113/78; PULSE 63
== END ==
LOC: PROCWHC3 13:02
PROVIDERS: ATTEND Nurse Practitioner Adult Health
DX: U07.1 COVID-19 (principal); E66.9 Obesity, unspecified; Z68.41 Body mass index [BMI] 40.0-44.9, adult
CPT/HCPCS: 96360; J3490; M0245

== ENCOUNTER → 2022-09-21 | Outpatient (CLI) | payer OTHER ==
--- NOTE | 2022-09-23 16:22 | MM ---
Reason for Exam: Screening (asymptomatic). Last mammogram was performed 2 year(s) and 1 month(s) ago. Patient History: Menarche at age 13. First Full-Term at age 34. Late child-bearing (after 30). Postmenopausal. Maternal grandmother had breast cancer, age 70. Risk Values: Dominga 5 year model risk: 1.4%. NCI Lifetime model risk: 12.0%. Prior Study Comparison: 08/02/2016 Bilateral Screening Mammogram, [facility]. 12/03/2018 Bilateral Screening Mammogram, [facility]. 08/17/2020 Bilateral Screening Mammogram, [facility]. Tissue Density: There are scattered fibroglandular densities. Findings: Analyzed By CAD. Unchanged prominent intramammary lymph node upper outer quadrant right breast. There is no suspicious group of microcalcifications or new suspicious mass in either breast. Overall Assessment: Benign, BI-RAD 2 Management: Screening Mammogram of both breasts in 1 year. 1. Patient should continue monthly self breast exams. 2. A clinical breast exam by your physician is recommended on an annual basis. 3. This exam should not preclude additional follow-up of suspicious palpable abnormalities. Electronically signed and approved by: Kimani Seaman M.D. Radiologist
== END | disposition home or self-care (01) ==
LOC: RADMAMWWP 16:48
PROVIDERS: ATTEND Family Medicine
DX: Z12.31 Encounter for screening mammogram for malignant neoplasm of breast (principal); Z78.0 Asymptomatic menopausal state; Z80.3 Family history of malignant neoplasm of breast
CPT/HCPCS: 77063; 77067

== ENCOUNTER → 2022-09-25 | Outpatient (CLI) | payer OTHER ==
--- NOTE | 2022-09-26 08:45 | US ---
EXAMINATION TYPE: US transvaginal DATE OF EXAM: 09/25/2022 COMPARISON: NONE CLINICAL HISTORY: 52-year-old female R10.2 PELVIC AND PERINEAL PAIN. The pelvic pain for 6 months, hi gh risk for HPV, , TECHNIQUE: TV. Transvaginal sonographic images Date of LMP: 8 years ago FINDINGS: EXAM MEASUREMENTS: Uterus: 6.2 x 2.7 x 3.0 cm Endometrial Stripe: Not well delineated, estimated at 3.4 mm. Right Ovary: not seen Left Ovary: not seen 1. Uterus: Anteverted and otherwise wnl 2. Endometrium: not discernable 3. Right Ovary: not seen due to bowel gas 4. Left Ovary: not seen due to bowel gas 5. Bilateral Adnexa: wnl 6. Posterior cul-de-sac: wnl IMPRESSION: Unable to visualize either ovary. Endometrial stripe is very difficult to delineate, estimated at 3.4 mm.
== END | disposition home or self-care (01) ==
LOC: RADUSWWP 16:41
PROVIDERS: ATTEND Family Medicine
DX: R10.2 Pelvic and perineal pain (principal)
CPT/HCPCS: 76830

== ENCOUNTER → 2022-10-12 | Outpatient (CLI) | payer OTHER ==
--- NOTE | 2022-10-12 08:53 | CT ---
EXAMINATION TYPE: CT abdomen pelvis wo con DATE OF EXAM: 10/12/2022 HISTORY: Pelvic pain, abnormal PAP CT DLP: 1727.8 mGycm. Automated Exposure Control for Dose Reduction was Utilized. TECHNIQUE: CT scan of the abdomen and pelvis is performed without oral or IV contrast. COMPARISON: NONE FINDINGS: Within the limitations of a non-contrast study, the following observations are made. LUNG BASES: No significant abnormality is appreciated. LIVER/GB: Gallbladder surgically absent. PANCREAS: No significant abnormality is seen. SPLEEN: No significant abnormality is seen. ADRENALS: No significant abnormality is seen. KIDNEYS: No renal calculi or hydronephrosis is seen bilaterally. BOWEL: Surgical changes from Gloria fundoplication surgery at level of diaphragmatic hiatus. Focal di latation with some debris in the distal esophagus just above diaphragm. No suspicious small or large bowel dilatation is seen. GENITAL ORGANS: Anteverted normal-sized uterus. No free fluid in pelvic cul-de-sac. Right ovary has 1 .8 cm low dense lesion likely consistent with simple small thin-walled cyst. It can be better charact erized with pelvic ultrasound if desired. LYMPH NODES: No greater than 1cm abdominal or pelvic lymph nodes are appreciated. OSSEOUS STRUCTURES: [id number] axial joint space loss in both hips.. OTHER: No significant additional abnormality is seen. IMPRESSION: No suspicious mass or adenopathy seen on noncontrast CT to suggest metastatic neoplasm.
== END | disposition home or self-care (01) ==
LOC: RADCTMAIN 08:00
PROVIDERS: ATTEND Family Medicine
DX: R10.32 Left lower quadrant pain (principal)
CPT/HCPCS: 74176

== ENCOUNTER → 2023-11-20 | Outpatient (CLI) | payer OTHER ==
--- NOTE | 2023-11-21 14:27 | MM ---
Reason for Exam: Screening (asymptomatic). Last mammogram was performed 1 year(s) and 2 month(s) ago. Patient History: Menarche at age 13. First Full-Term at age 34. Late child-bearing (after 30). Postmenopausal. Maternal grandmother had breast cancer, age 70. Risk Values: Dominga 5 year model risk: 1.5%. NCI Lifetime model risk: 11.8%. Prior Study Comparison: 12/03/2018 Bilateral Screening Mammogram, [facility]. 08/17/2020 Bilateral Screening Mammogram, [facility]. 09/21/2022 Bilateral MG 3D screening mammo w/cad, [facility]. Tissue Density: The breasts are almost entirely fatty. Findings: Analyzed By CAD. There is no suspicious group of microcalcifications or new suspicious mass. Overall Assessment: Negative, BI-RAD 1 Management: Screening Mammogram of both breasts in [address] [facility] will attempt to contact patient to return for supplemental views and ultrasound if indicated. Patient should continue monthly self-breast exams. A clinical breast exam by your physician is recommended on an annual basis. This exam should not preclude additional follow-up of suspicious palpable abnormalities. Note on Dominga scores and lifetime risk: 1. A Dominga score greater than 3% is considered moderate risk. If this is the case, consider specialist referral to assess eligibility for a risk reducing agent. 2. If overall lifetime risk for the development of breast cancer is 20% or higher, the patient may qualify for future screening with alternating mammogram and breast MRI. Electronically signed and approved by: Wyatt Painting DO
== END | disposition home or self-care (01) ==
LOC: RADMAMWWP 16:18
PROVIDERS: ATTEND Family Medicine
DX: Z12.31 Encounter for screening mammogram for malignant neoplasm of breast (principal); Z80.3 Family history of malignant neoplasm of breast; Z78.0 Asymptomatic menopausal state
CPT/HCPCS: 77063; 77067

== ENCOUNTER → 2024-09-01 | Outpatient (CLI) | payer OTHER ==
--- NOTE | 2024-09-01 11:55 | XR ---
EXAMINATION TYPE: XR bone survey complete, 16 views DATE OF EXAM: 09/01/2024 COMPARISON: NONE CLINICAL INDICATION: Female, 54 years old with history of D47.2 MONOCLONAL GAMMOPATHY; FINDINGS: Chest: Evaluation right hemidiaphragm. Lungs appear clear though with some crowded vascular markings due to low lung volumes. Heart normal size. No discrete lytic lesion identified of the clavicles and ribs. Cervical spine: No prevertebral soft tissue swelling. Scattered mild endplate spondylosis as well as mild to moderate facet and uncovertebral joint arthropathy. No discrete lytic lesion. No malalignment . Humeri: No discrete lytic lesion or endosteal scalloping. Calvarium: No discrete lytic lesion. The mandible also appears clear. Scattered dental amalgam. Thoracic spine: Prominent anterior endplate spondylosis probably T10-T11. No vertebral compression co llapse or malalignment seen. Lumbar spine: Moderate anterior endplate spondylosis upper lumbar spine and thoracolumbar junction. S cattered mild degenerative disc disease. Vertebral body heights are preserved. Trace grade 1 retrolis thesis at a couple levels, probably L1-L2, L2-L3, L3-L4. Pelvis: SI joints appear symmetric and intact as do the hips and pubic symphysis. No punched out lesi on. Femurs: No punched-out lytic lesion or endosteal scalloping is seen. At least bicompartmental degener ative change in both knees with prominent marginal spurring. IMPRESSION: 1. No convincing lytic bone disease/radiographic evidence for myelomatous involvement. 2. Bicompartmental osteoarthrosis at the knees and some degenerative changes at the thoracolumbar valerie ction and upper lumbar spine. [facility], , 09/01/2024 11:52 AM
== END | disposition home or self-care (01) ==
LOC: RADXRMAIN 09:19
PROVIDERS: ATTEND Internal Medicine Hematology & Oncology
DX: D47.2 Monoclonal gammopathy (principal); I10 Essential (primary) hypertension; E78.5 Hyperlipidemia, unspecified; Z86.711 Personal history of pulmonary embolism
CPT/HCPCS: 77075

== ENCOUNTER → 2024-12-19 | Outpatient (CLI) | payer OTHER ==
--- NOTE | 2024-12-19 17:46 | MM ---
Reason for Exam: Screening (asymptomatic). Last mammogram was performed 1 year(s) and 1 month(s) ago. Patient History: Menarche at age 13. First Full-Term at age 34. Late child-bearing (after 30). Postmenopausal. Maternal grandmother had breast cancer, age 70. Risk Values: Dominga 5 year model risk: 1.5%. NCI Lifetime model risk: 11.6%. Prior Study Comparison: 08/17/2020 Bilateral Screening Mammogram, [facility]. 09/21/2022 Bilateral MG 3D screening mammo w/cad, [facility]. 11/20/2023 Bilateral MG 3D screening mammo w/cad, [facility]. Tissue Density: The breasts are almost entirely fatty. Findings: Analyzed By CAD. Benign intramammary lymph node redemonstrated upper outer quadrant right breast. There is no suspicious group of microcalcifications or new suspicious mass in either breast. Overall Assessment: Benign, BI-RAD 2 Management: Screening Mammogram of both breasts in 1 year. Patient should continue monthly self-breast exams. A clinical breast exam by your physician is recommended on an annual basis. This exam should not preclude additional follow-up of suspicious palpable abnormalities. Note on Dominga scores and lifetime risk: 1. A Dominga score greater than 3% is considered moderate risk. If this is the case, consider specialist referral to assess eligibility for a risk reducing agent. 2. If overall lifetime risk for the development of breast cancer is 20% or higher, the patient may qualify for future screening with alternating mammogram and breast MRI. [facility], , 12/19/2024 5:43 PM. Electronically signed and approved by: Kimani Seaman M.D. Radiologist
== END | disposition home or self-care (01) ==
LOC: RADMAMWWP 16:28
PROVIDERS: ATTEND Family Medicine
DX: Z12.31 Encounter for screening mammogram for malignant neoplasm of breast (principal); R92.313 Mammographic fatty tissue density, bilateral breasts; Z78.0 Asymptomatic menopausal state; Z80.3 Family history of malignant neoplasm of breast
CPT/HCPCS: 77063; 77067

== ENCOUNTER → 2024-12-26 | Outpatient (CLI) | payer OTHER ==
[2024-12-26 15:08] LABS: Basophils # (A) 0.03 X 10*3/uL (0.00-0.10); Basophils % (A) 0.6 %; Eosinophils # (A) 0.04 X 10*3/uL (0.04-0.35); Eosinophils % (A) 0.7 %; HGB 14.1 g/dL (12.0-15.0); Lymphocytes # (A) 1.42 X 10*3/uL (0.90-5.00); Lymphocytes % (A) 26.5 %; MCH 25.8 pg (27.0-32.0); MCHC 31.3 g/dL (32.0-37.0); MCV 82.3 FL (80.0-97.0); Mean Platelet Volume 10.2 FL (9.5-12.2); Monocytes % (A) 9.3 %; NRBC Per 100 WBC 0 X 10*3/uL (0.00-0.01); Neutrophils # (A) 3.36 X 10*3/uL (1.80-7.70); Neutrophils % (A) 62.7 %; Platelet Count 206 X 10*3/uL (140-440); RBC 5.47 X 10*6/uL (4.10-5.20); RDW 14.8 % (11.5-14.5); WBC 5.36 X 10*3/uL (4.50-10.00)
[2024-12-26 15:51] LABS: Chol/HDL Ratio 3.25 Ratio; LDL Cholesterol,Calculated 102.5 mg/dL (0.0-131.0); VLDL Calculation 11.66 mg/dL (5.00-40.00)
[2024-12-26 16:39] LABS: NT-Pro-B-Type Natriuretic Pept 136 pg/mL (0-125)
== END | disposition home or self-care (01) ==
LOC: LABWHC1 08:14
PROVIDERS: ATTEND Student in an Organized Health Care Education/Training Program
DX: Z13.6 Encounter for screening for cardiovascular disorders (principal); E11.9 Type 2 diabetes mellitus without complications; I50.9 Heart failure, unspecified; E78.5 Hyperlipidemia, unspecified; D72.9 Disorder of white blood cells, unspecified; E03.9 Hypothyroidism, unspecified; R79.89 Other specified abnormal findings of blood chemistry
CPT/HCPCS: 36415; 80061; 82103; 82104; 82785; 83036; 83880; 85025; 86001; 86003; 86606; 86609

== ENCOUNTER 2025-02-18 06:07 | Day surgery (SDC) | payer OTHER ==
[2025-02-17 08:29] VITALS: BMI 46.0
[2025-02-18] MEDS: IV FLUID CONTINUATION 500 ML IV ONE (06:46)
[2025-02-18] MEDS: SODIUM CHLORIDE 0.9% 500 ML 500 ML IV SCH (07:05)
[2025-02-18 07:10] LABS: Glucose,Whole Blood 99 mg/dL (70-110)
[2025-02-18 07:11] VITALS: TEMP 97
[2025-02-18] MEDS ORDERED: PROPOFOL 10 MG/ML 20 ML VIAL IV ONE (07:30)
[2025-02-18 08:16] VITALS: RESP 18
--- NOTE | 2025-02-18 08:29 | P.EPPROC ---
- EP Procedure Note Date of Procedure: 02/18/25 Electrophysiology Procedure Note: PROCEDURE NAME: Synchronized cardioversion. Consent: Risks and benefits discussed with patient and consent obtained. Anesthesia: provided by Anesthesia team using propofol The appropriate time-out procedure was performed including proper identification of the patient, physician, procedure, documentation, and there were no safety issues identified. The patient participated actively in this. After sedation was achieved, the patient was placed in the supine position and hands free patches were placed on his chest in the AP position. 1 shock was provided at, 200 Joules with successful resumption of normal sinus rhythm. This was confirmed on EKG. Repeat EKG confirms return to sinus rhythm. Complications: The patient tolerated the procedure well without complications.
[2025-02-18 09:23] VITALS: BP 91/62; PULSE 57
== END 2025-02-18 09:23 | disposition home or self-care (01) ==
LOC: OR 06:07
PROVIDERS: ATTEND Student in an Organized Health Care Education/Training Program
DX: I48.11 Longstanding persistent atrial fibrillation (principal); I42.9 Cardiomyopathy, unspecified; E66.01 Morbid (severe) obesity due to excess calories; G47.33 Obstructive sleep apnea (adult) (pediatric); Z68.42 Body mass index [BMI] 45.0-49.9, adult; Z86.711 Personal history of pulmonary embolism; Z88.8 Allergy status to other drugs, medicaments and biological substances; Z79.02 Long term (current) use of antithrombotics/antiplatelets; Z79.899 Other long term (current) drug therapy
CPT/HCPCS: 92960; J2704

== ENCOUNTER 2025-04-09 05:46 | Day surgery (SDC) | payer OTHER ==
[2025-04-09] MEDS: IV FLUID CONTINUATION 1,000 ML IV ONE (06:10)
[2025-04-09] MEDS: SODIUM CHLORIDE 0.9% 1,000 ML IV SCH (06:19)
[2025-04-09] MEDS ORDERED: MIDAZOLAM 2 MG/2 ML VIAL IV PRN (07:00)
[2025-04-09] MEDS ORDERED: HYDROmorphone 0.5 MG/0.5 ML SYRINGE IVP PRN (07:00)
[2025-04-09 07:02] LABS: Basophils # (A) 0.04 10*3/uL (0.00-0.10); Basophils % (A) 0.6 %; Eosinophils # (A) 0.07 10*3/uL (0.04-0.35); Eosinophils % (A) 1.1 %; HCT 45.8 % (37.2-46.3); HGB 14.5 g/dL (12.0-15.0); Lymphocytes # (A) 1.35 10*3/uL (0.90-5.00); Lymphocytes % (A) 20.9 %; MCH 26.8 pg (27.0-32.0); MCHC 31.7 g/dL (32.0-37.0); MCV 84.5 fL (80.0-97.0); Monocytes # (A) 0.74 10*3/uL (0.20-1.00); Monocytes % (A) 11.5 %; Neutrophils # (A) 4.24 10*3/uL (1.80-7.70); Neutrophils % (A) 65.6 %; Platelet Count 226 10*3/uL (140-440); RBC 5.42 10*6/uL (4.10-5.20); RDW 14.4 % (11.5-14.5); WBC 6.46 10*3/uL (4.50-10.00)
[2025-04-09 07:06] LABS: HCG,Qualitative Serum Not Detected
[2025-04-09] MEDS: MIDAZOLAM 2 MG/2 ML VIAL IV ONE (07:12)
[2025-04-09 07:22] LABS: African American GFR (CKD) 90 (>60 ml/min/1.73 sqM); Anion Gap 9 mmol/L; Blood Urea Nitrogen 23 mg/dL (7-17); Calcium 8.9 mg/dL (8.4-10.2); Carbon Dioxide 25 mmol/L (22-30); Chloride 108 mmol/L (98-107); Glucose 108 mg/dL (74-99); Non-African American GFR(CKD) 78 (>60 ml/min/1.73 sqM); Potassium 4.5 mmol/L (3.5-5.1); Sodium 142 mmol/L (137-145)
[2025-04-09] MEDS ORDERED: SUCCINYLCHOLINE CHLORIDE 200 MG/10 ML VIAL IV ONE (07:35)
[2025-04-09] MEDS ORDERED: HEPARIN SODIUM,PORCINE 5,000 UNIT/ML 1 ML VIAL ONE (07:35)
[2025-04-09] MEDS ORDERED: PROPOFOL 10 MG/ML 20 ML VIAL IV ONE (07:35)
[2025-04-09] MEDS ORDERED: LIDOCAINE 1% INJ 10MG/ML (20 ML MDV) ONE (07:35)
[2025-04-09] MEDS ORDERED: fentaNYL (PF) 50 MCG/ML 2 ML AMP ONE (07:35)
[2025-04-09] MEDS ORDERED: ONDANSETRON 4 MG/2 ML VIAL ONE (07:35)
[2025-04-09] MEDS ORDERED: KETAMINE HCL IN 0.9 % NACL 50 MG/5 ML SYRINGE ONE (07:35)
[2025-04-09] MEDS ORDERED: PHENYLEPHRINE 10 MG/ML VIAL ONE (07:35)
[2025-04-09] MEDS ORDERED: HEPARIN SODIUM,PORCINE 10,000 UNIT/ML 1 ML VIAL ONE (07:35)
[2025-04-09] MEDS: HEPARIN SODIUM,PORCINE/D5W 25,000 UNIT in EMPTY BAG 1 BAG IV ONE (07:50)
[2025-04-09] MEDS: HEPARIN SODIUM,PORCINE (1 ML) 2,500 UNIT in SODIUM CHLORIDE 0.9% 250 ML IRRIGATION ONE (07:51)
[2025-04-09] MEDS: HEPARIN SODIUM,PORCINE 10,000 UNIT in SODIUM CHLORIDE 0.9% 1,000 ML IRRIGATION ONE (07:51)
--- NOTE | 2025-04-09 08:15 | P.HPCAR ---
History of Present Illness This is Dr. Allison dictating an H/P on this patient The patient was interviewed and examined IMPRESSION / ASSESSMENT: Persistent atrial fibrillation, very symptomatic with tiredness and fatigue Failed amiodarone Increased BMI History of pulmonary embolism History of thalassemia trait PLAN: Proceed with A-fib ablation Calculate heparin dose based on body weight. This was calculated and started preprocedure HPI Patient continues to experience episodes of palpitations associate with tiredness fatigue and shortness of breath She has long episodes of atrial fibrillation. She remains on flecainide. She has failed amiodarone No fever chills cough expectoration ROS: No fever chills or rigors, no cough, phlegm or expectoration, no nausea, vomiting or diarrhea, no hematuria, dysuria, no musculoskeletal complaints, no strokes or seizures, no skin lesions. EXAMINATION: 135/88 mmHg pulse rate in the 80s afebrile Breath sounds are clear no rhonchi no crackles Heart sounds are irregular no murmurs Groin skin is normal without any excoriation or yeast infection No JVD no lower extremity edema Increased BMI REVIEW OF LABS, ECG & MEDICAL DATA Metoprolol tartrate 25 mg twice daily lisinopril hydrochlorothiazide Jardiance Eliquis Flecainide 100 mg twice daily and atorvastatin 20 mg daily Hemoglobin 14.5 Electrolytes normal TSH 4.5 Physical Exam Vitals: Vital Signs Temp Pulse Resp BP Pulse Ox 04/09/25 06:24 98.6 F 85 14 135/88 97 Intake and Output 04/08/25 04/09/25 04/09/25 22:59 06:59 14:59 Intake Total 0 Balance 0 Intake: IV 0 Other: Weight 147.4 kg Past Medical History Past Medical History: Atrial Fibrillation, Blood Disorder, Deep Vein Thrombosis (DVT), Hyperlipidemia, Hypertension, Pulmonary Embolus (PE) Additional Past Medical History / Comment(s): iron deficient anemia,glaucoma tal eyes, DVT/PE-Apr 2018, hx bradycardia-resting heart rate high 40s to low 50s, chronic generalized pain, see Dr. Allison's H & P History of Any Multi-Drug Resistant Organisms: None Reported Past Surgical History: Bariatric Surgery, Section, Cholecystectomy Additional Past Surgical History / Comment(s): gastric bypass, EGD, COLONOSCOPY, CARDIOVERSION X 3 Past Anesthesia/Blood Transfusion Reactions: Previous Problems w/ Anesthesia Additional Past Anesthesia/Blood Transfusion Reaction / Comment(s): hx bradycardia Smoking Status: Never smoker - Past Family History Mother Family Medical History: No Reported History Physical Examination Vital Signs Temp Pulse Resp BP Pulse Ox 04/09/25 06:24 98.6 F 85 14 135/88 97 Intake and Output 04/08/25 04/09/25 04/09/25 22:59 06:59 14:59 Intake Total 0 Balance 0 Intake: IV 0 Other: Weight 147.4 kg Results 04/09/25 06:10 04/09/25 06:10 CBC 04/09/25 Range/Units 06:10 WBC 6.46 (4.50-10.00) 10*3/uL RBC 5.42 H (4.10-5.20) 10*6/uL Hgb 14.5 (12.0-15.0) g/dL Hct 45.8 (37.2-46.3) % Plt Count 226 (140-440) 10*3/uL Comprehensive Metabolic Panel 04/09/25 Range/Units 06:10 Sodium 142 (137-145) mmol/L Potassium 4.5 (3.5-5.1) mmol/L Chloride 108 H (98-107) mmol/L Carbon Dioxide 25 (22-30) mmol/L BUN 23 H (7-17) mg/dL Creatinine 0.86 (0.52-1.04) mg/dL Glucose 108 H (74-99) mg/dL Calcium 8.9 (8.4-10.2) mg/dL Current Medications Generic Name Dose Route Start Last Admin Trade Name Freq PRN Reason Stop Dose Admin Hydromorphone HCl 0.5 mg 04/09/25 07:00 Hydromorphone 0.5 Mg/0.5 Ml Syringe IVP 04/09/25 23:00 Q5M PRN Phase 1 or 2 - Pain Control Sodium Chloride 1,000 mls @ 20 mls/hr 04/09/25 05:50 04/09/25 06:19 Saline 0.9% IV 05/09/25 05:49 20 mls/hr .Q24H DARY Administration Lactated Ringer's 1,000 mls @ 20 mls/hr 04/09/25 05:50 Lactated Ringers IV 05/09/25 05:49 .Q24H DARY Midazolam HCl 2 mg 04/09/25 07:00 Midazolam 2 Mg/2 Ml Vial IV 04/09/25 23:00 ONCE PRN Pre-Op Anxiety Intake and Output 04/08/25 04/09/25 04/09/25 22:59 06:59 14:59 Intake Total 0 Balance 0 Intake: IV 0 Other: Weight 147.4 kg 04/09/25 06:10 04/09/25 06:10
[2025-04-09] MEDS: LIDOCAINE 1% INJ 10MG/ML (20 ML MDV) SQ ONE (08:24)
[2025-04-09] MEDS: IOPAMIDOL-370 100ML BTL INJ ONE (10:47)
[2025-04-09] MEDS ORDERED: ACETAMINOPHEN TAB 325 MG TAB PO PRN (11:06)
--- NOTE | 2025-04-09 11:22 | P.EPPROC ---
- EP Procedure Note Electrophysiology Procedure Note: PROCEDURE A. fib ablation with entry-level PVI, left atrial septal ablation and left atrial roof ablation DIAGNOSIS Persistent atrial fibrillation, symptomatic, refractory to therapy. Failed amiodarone RESULT No left atrial appendage mass seen on intracardiac echo, Successful A. fib ablation/pulmonary vein isolation of all veins using cryo- ablation at an antral level Complete entrance block in all 4 veins confirmed No evidence for phrenic nerve injury Left atrial septal ablation Left atrial roof ablation Esophageal deflection-NO, central esophagus Remained in A-fib after PVI and linear ablation in LA Electrical cardioversion with a synchronized shock across the chest YES PROCEDURE DETAILS Written informed consent prior to procedure. Patient brought to the EP lab. General anesthesia given. Heparin administered. ACT maintained above 300 seconds Both groins prepped and draped per protocol and venous sheaths placed. Esophagus intubated, circa catheter for temperature monitoring an endoscope for possible esophageal deflection. Phrenic nerve monitoring performed. Esophageal temperature monitoring performed. Esophageal deflection performed if circa catheter overlapping with the balloon or circa temperature less than 27.5°C Intracardiac echocardiography performed. Pericardium evaluated. Left atrial appendage evaluated. Left atrium evaluated along with pulmonary veins Transseptal catheterization performed under fluoroscopic guidance and intracardiac echo guidance Cryoablation sheath exchanged, balloon catheter along with achieve catheter placed in the left atrium. Pulmonary veins isolated in the following sequence: Left superior pulmonary vein followed by left inferior pulmonary vein, followed by right inferior pulmonary vein and lastly right superior pulmonary vein. Phrenic nerve stimulation along with capture thresholds within the SVC and right superior pulmonary vein to identify the phrenic nerve proximity to the cryo- balloon. Pulmonary veins isolated and confirmed with entrance and exit block. Phrenic nerve integrity confirmed at the end of the procedure Ablation of the left atrial roof performed with sequential lesions from the left superior to the right superior pulmonary veins. Ablation of the electrograms confirmed with the chief cath Ablation of the left atrial septum performed with cannulation of the superior branch of the right inferior and the inferior branch of the right superior vein to achieve ablation of the posterior septum of the left atrium. Ablation of electrograms confirmed with achieve catheter Electrical cardioversion performed for persistence of atrial fibrillation despite successful ablation. Diagnostic catheters for the high right atrium, His bundle, coronary sinus placed. LA and RA pressures recorded LA pressure: 26/9/18 Diagnostic EP study with coronary sinus pacing and recording Baseline measurements: Sinus For 1199, W[place] interval 159, QRS 112 and QT 461 ms AH 46 and HV interval 48 ms Venous sheaths were removed and hemostasis assured with a closure device. Patient extubated and transferred to recovery Increase procedural time Difficult transseptal catheterization, thick fossa ovalis, additional manipulation with the coronary sinus catheter required at the fossa ovalis to al low for entry of the sheath. Positioning the needle tip in the mid fossa ovalis took extra effort and increased procedural time Multiple attempts needed for successful cryoablation isolation of the right inferior pulmonary vein. Early branching noted. Multiple cryo lesions applied. Large left inferior pulmonary vein requiring multiple cryo ablations Increase procedural time needed PROCEDURES PERFORMED Diagnostic EP study CS pacing and recording Left and right transseptal catheterization Catheter the mapping of the tachycardia Intracardiac echocardiography Pulmonary vein isolation with transseptal and comprehensive EPS, [id number] Extended procedure duration Left atrial roof line, +[id number] Linear ablation, left atrium, +[id number] Electrical cardioversion with a synchronized shock across the chest [id number]
--- NOTE | 2025-04-09 11:24 | P.PRLE ---
RE: Diana Rajput Dear Santy Patient underwent successful ablation of the pulmonary veins at an antral level, ablation of the posterior left atrial septum and ablation of the left atrial roof. She still required electrical cardioversion after this. I have now reduced the dose of flecainide to 50 mg twice daily and she will continue Eliquis and other cardiac medications as before. She will follow-up with you and Dr. Alba as before. Thank you for entrusting me with the care of the patient Warm regards Sincerely Tim Allison
[2025-04-09] MEDS: ACETAMINOPHEN IV (For NPO) 1,000 MG in EMPTY BAG 1 BAG IVPB ONE (12:10)
[2025-04-09] MEDS: LACTATED RINGERS 1,000 ML IV SCH (12:51)
[2025-04-09 15:31] VITALS: TEMP 98.3
[2025-04-09 16:10] VITALS: BP 110/79; PULSE 61
[2025-04-09] MEDS ORDERED: FLECAINIDE 50 MG TAB PO SCH (21:00)
[2025-04-09] MEDS ORDERED: METOPROLOL TARTRATE 25 MG TAB PO SCH (21:00)
[2025-04-09] MEDS ORDERED: LISINOPRIL-HCTZ 10-12.5 MG 1 EACH TAB PO SCH (21:00)
[2025-04-09] MEDS ORDERED: ATORVASTATIN 20 MG TAB PO SCH (21:00)
[2025-04-09] MEDS ORDERED: APIXABAN 5 MG TAB PO SCH (21:00)
[2025-04-09 21:13] VITALS: RESP 17
[2025-04-10] MEDS ORDERED: DAPAGLIFLOZIN PROPANEDIOL 5 MG TABLET PO SCH (09:00)
== END 2025-04-09 20:05 | disposition home or self-care (01) ==
LOC: CATHEP 05:46 → 6NMEDSUR 10:40 → CATHEP 20:05
PROVIDERS: ATTEND Internal Medicine Clinical Cardiac Electrophysiology
DX: I48.19 Other persistent atrial fibrillation (principal); D56.3 Thalassemia minor; E78.5 Hyperlipidemia, unspecified; G89.29 Other chronic pain; I10 Essential (primary) hypertension; Z98.84 Bariatric surgery status
CPT/HCPCS: 93656; 92960; 37248; 93623; 86900; 86901; 80048; 84443; 85025; 86850; 84703; C1769 ×3; C1894; C1760 ×2; C1759; C1730 ×2; C1766; J2250; J0330; J1644 ×3; J2405; J2003; J3010; J0131; J2704; Q9967; J2371